=== PATIENT | male | born 1960 ===

== ENCOUNTER 2017-02-18 16:11 | Emergency (ER) | payer SELFPAY ==
[~2017-02-18] VITALS: Ht 170.2 cm; Wt 80.0 kg
[2017-02-18 16:19] VITALS: BP 146/91; PULSE 95; RESP 18; TEMP 98.4; O2SAT 93
[2017-02-18] MEDS ORDERED: THIAMINE INJ 100 MG in SODIUM CHLORIDE 0.9% INJ 100 ML IV ONE (16:30)
[2017-02-18] MEDS ORDERED: SODIUM CHLOR 0.9% 1000 ML INJ 1,000 ML IV ONE ×2 (16:30→17:45)
--- NOTE | 2017-02-18 16:43 | RADRPT ---
EXAM DATE/TIME: 02/18/2017 16:24 [place] COMPARISON: No previous studies available for comparison. INDICATIONS : Short of breath. MEDICAL HISTORY : None. SURGICAL HISTORY : None. ENCOUNTER: Initial ACUITY: 1 day PAIN SCORE: Non-responsive. LOCATION: Bilateral chest FINDINGS: A single view of the chest demonstrates the lungs to be symmetrically aerated without evidence of mas s, infiltrate or effusion. The cardiomediastinal contours are unremarkable. Osseous structures are intact. CONCLUSION: No acute disease. Cornell Hernandez MD on February 18, 2017 at 16:41 Board Certified Radiologist. This report was verified electronically.
[2017-02-18 17:35] LABS: AUTOMATED NEUTROPHIL # 3.8 TH/MM3 (1.8-7.7); BASOPHIL # 0.3 TH/MM3 (0-0.2); BASOPHIL % 3.8 % (0.0-2.0); EOSINOPHIL # 0.2 TH/MM3 (0-0.4); EOSINOPHIL % 2.2 % (0.0-4.0); HEMATOCRIT 45.3 % (39.0-51.0); HEMO FLAGS DIFF FINAL; LYMPH % 39.2 % (9.0-44.0); LYMPHOCYTE # 3.2 TH/MM3 (1.0-4.8); MEAN CELL VOLUME 97.1 FL (80.0-100.0); MEAN CORPUSCULAR HEMOGLOBIN 32.6 PG (27.0-34.0); MEAN CORPUSCULAR HGB CONC 33.6 % (32.0-36.0); MONO % 8.1 % (0.0-8.0); NEUT % 46.7 % (16.0-70.0); PLATELET COUNT 161 TH/MM3 (150-450); RED BLOOD COUNT 4.67 MIL/MM3 (4.50-5.90); RED CELL DISTRIBUTION WIDTH 15.5 % (11.6-17.2); WHITE BLOOD COUNT 8.1 TH/MM3 (4.0-11.0)
--- NOTE | 2017-02-18 17:42 | PD ---
HPI Chief Complaint: Alcohol/Drug Intoxication Time Seen by Provider: 16:16 Travel History International Travel<30 days: No Contact w/Intl Traveler<30days: No Traveled to known affect area: No History of Present Illness HPI This is a 56-year-old gentleman with history of alcohol abuse, alcoholic liver disease, who presents today with complaints of throat mental status. Initially when fire arrived, they thought the patient was having a stroke. After further evaluation by the [facility] or smell, they found the patient to be with a heavy alcohol odor and slurred speech consistent with alcohol abuse. The patient admitted that he had had a large amount to drink. who presents states that he has been intoxicated previously and has had problems with alcohol. She reports that she was unaware that he had alcohol in the house. Patient denies any headache or neck pain. There are no other complaints time my examination. PFSH Past Medical History Diminished Hearing: No Medical other: Yes (ALCOHOL ABUSE) Tetanus Vaccination: Unknown Influenza Vaccination: No Past Surgical History Surgical History: No Previous Surgery Social History Alcohol Use: Yes (STOP DRINKING SINCE MAY ) Tobacco Use: Yes Substance Use: No Allergies-Medications (Allergen,Severity, Reaction): Coded Allergies: Penicillins (Verified Allergy, Unknown, 02/18/17) Reported Meds & Prescriptions Reported Meds & Active Scripts Active No Active Prescriptions or Reported Medications Review of Systems ROS Limitations: Intoxication, Altered Mental Status Except as stated in HPI: all other systems reviewed are Neg (to obtain a clear review of systems secondary to patient's intoxicated status.) Gastrointestinal: No: Nausea, Vomiting Neurologic: Positive: Slurred Speech, No: Headache (denies), Seizures (denies) Physical Exam Narrative GENERAL: Well developed well-nourished gentleman in no acute respiratory distress. The patient has slurred speech and admits to drinking alcohol today. SKIN: Focused skin assessment warm/dry. HEAD: Atraumatic. Normocephalic. EYES: No scleral icterus. No injection or drainage. ENT: No nasal bleeding or discharge. Mucous membranes pink and moist. NECK: Trachea midline. No JVD. Supple. CARDIOVASCULAR: Regular rate and rhythm. No murmur appreciated. RESPIRATORY: No accessory muscle use. Clear to auscultation. Breath sounds equal bilaterally. GASTROINTESTINAL: Abdomen soft, non-tender, nondistended. Hepatic and splenic margins not palpable. MUSCULOSKELETAL: No obvious deformities. No clubbing. No cyanosis. No edema. NEUROLOGICAL: Awake and appears intoxicated. No obvious cranial nerve deficits. Motor grossly within normal limits. Slurred speech. PSYCHIATRIC: Appropriate mood and affect; insight and judgment normal. Data Data Last Documented VS Vital Signs Date Time Temp Pulse Resp B/P (MAP) Pulse Ox O2 Delivery O2 Flow Rate FiO2 02/18/17 16:19 98.4 95 18 146/91 (109) 93 Orders Orders Complete Blood Count With Diff (02/18/17 16:20) Comprehensive Metabolic Panel (02/18/17 16:20) Lipase (02/18/17 16:20) Chest, Single Ap (02/18/17 16:20) Ct Brain W/O Iv Contrast(Rout) (02/18/17 16:20) Iv Access Insert/Monitor (02/18/17 16:20) Ecg Monitoring (02/18/17 16:20) Oximetry (02/18/17 16:20) Drug Screen, Random Urine (02/18/17 16:20) Alcohol (Ethanol) (02/18/17 16:20) Sodium Chlor 0.9% 1000 Ml Inj (Ns 1000 M (02/18/17 16:30) Thiamine Inj (Thiamine Inj) (02/18/17 16:30) Sodium Chlor 0.9% 1000 Ml Inj (Ns 1000 M (02/18/17 17:45) Labs Laboratory Tests Test 02/18/17 16:25 02/18/17 17:25 White Blood Count 8.1 TH/MM3 Red Blood Count 4.67 MIL/MM3 Hemoglobin 15.2 GM/DL Hematocrit 45.3 % Mean Corpuscular Volume 97.1 FL Mean Corpuscular Hemoglobin 32.6 PG Mean Corpuscular Hemoglobin Concent 33.6 % Red Cell Distribution Width 15.5 % Platelet Count 161 TH/MM3 Mean Platelet Volume 8.7 FL Neutrophils (%) (Auto) 46.7 % Lymphocytes (%) (Auto) 39.2 % Monocytes (%) (Auto) 8.1 % Eosinophils (%) (Auto) 2.2 % Basophils (%) (Auto) 3.8 % Neutrophils # (Auto) 3.8 TH/MM3 Lymphocytes # (Auto) 3.2 TH/MM3 Monocytes # (Auto) 0.7 TH/MM3 Eosinophils # (Auto) 0.2 TH/MM3 Basophils # (Auto) 0.3 TH/MM3 CBC Comment DIFF FINAL Differential Comment Blood Urea Nitrogen 14 MG/DL Creatinine 0.84 MG/DL Random Glucose 88 MG/DL Total Protein 7.1 GM/DL Albumin 3.4 GM/DL Calcium Level 8.1 MG/DL Alkaline Phosphatase 159 U/L Aspartate Amino Transf (AST/SGOT) 58 U/L Alanine Aminotransferase (ALT/SGPT) 54 U/L Total Bilirubin 0.2 MG/DL Sodium Level 147 MEQ/L Potassium Level 3.6 MEQ/L Chloride Level 114 MEQ/L Carbon Dioxide Level 21.9 MEQ/L Anion Gap 11 MEQ/L Estimat Glomerular Filtration Rate 95 ML/MIN Lipase 265 U/L Ethyl Alcohol Level 460 MG/DL Urine Opiates Screen NEG Urine Barbiturates Screen NEG Urine Amphetamines Screen NEG Urine Benzodiazepines Screen NEG Urine Cocaine Screen NEG Urine Cannabinoids Screen POS MDM Medical Decision Making Medical Screen Exam Complete: Yes Emergency Medical Condition: Yes Differential Diagnosis Metabolic derangement versus EtOH intoxication versus head injury Narrative Course 56-year-old male with a history of alcoholism, alcoholic liver disease, presents here with altered mental status and slurred speech. The patient has an alcohol level of 460. He also has elevated liver enzymes consistent with his history. He has been observed for 2-1/2 hours. He is appropriately sober to be discharged. His /significant other is at the bedside and will take him home. The patient is instructed to stop taking alcohol. He'll be given [facility] Posey's referral information as needed. Diagnosis Primary Impression: Acute alcohol intoxication Additional Impression: Alcoholic liver disease Referrals: [facility] Additional Instructions: Strop drinking alcohol. Follow up with P[facility] Posey as an outpatient for alcohol detox. Scripts No Active Prescriptions or Reported Meds Disposition: 01 DISCHARGE HOME Condition: Stable Raoul Stanford MD Feb 18, 2017 17:42
[2017-02-18 17:46] LABS: ALT (GPT) 54 U/L (12-78); AST (GOT) 58 U/L (15-37); BLOOD UREA NITROGEN 14 MG/DL (7-18); CHLORIDE 114 MEQ/L (98-107); GLOMERULAR FILTRATION RATE 95 ML/MIN (>89); POTASSIUM 3.6 MEQ/L (3.5-5.1); SODIUM (NA) 147 MEQ/L (136-145)
[2017-02-18 17:58] LABS: ANION GAP 11 MEQ/L (5-15); BICARBONATE 21.9 MEQ/L (21.0-32.0); TOTAL BILIRUBIN ADULT 0.2 MG/DL (0.2-1.0)
[2017-02-18 18:24] LABS: ALKALINE PHOSPHATASE 159 U/L (45-117)
[2017-02-18 18:25] LABS: ALCOHOL 460 MG/DL (0-5)
== END 2017-02-18 19:32 | disposition home or self-care (01) ==
LOC: NEPC 16:11
DX: F10.129 Alcohol abuse with intoxication, unspecified (principal); K70.9 Alcoholic liver disease, unspecified; R41.82 Altered mental status, unspecified; R47.81 Slurred speech; R74.8 Abnormal levels of other serum enzymes; Z72.0 Tobacco use; Z88.0 Allergy status to penicillin
CPT/HCPCS: 71010; 80053; 80307; 83690; 85025; 96361; 96365; 99284; J3411; J7030